=== PATIENT | male | born 1985 | race Caucasian/White ===

== ENCOUNTER 2020-03-04 05:42 | Emergency (ER) | payer OTHER, SELFPAY ==
--- NOTE | ~2020-03-04 | XR_ITS ---
EXAMINATION: XR chest 2V DATE: 03/04/2020 06:20 INDICATION: Left-sided chest pain radiating into the left shoulder TECHNIQUE: PA and lateral views of the chest were obtained. COMPARISON: None FINDINGS: The lungs are clear with no focal airspace opacities, pulmonary edema, pleural effusion or pneumothor ax. The cardiomediastinal silhouette is normal. Mild anterior wedging of a couple lower thoracic vert ebral bodies. IMPRESSION: 1. No acute cardiopulmonary disease. Reviewed, dictated and finalized at location A. [facility]
[2020-03-04 05:46] VITALS: BP 158/100; PULSE 97; RESP 20; TEMP 36.9; O2SAT 99
--- NOTE | 2020-03-04 05:52 | ECG_ITS ---
Measurements Intervals [place] Rate: 89 P: 40 IL: 136 QRS: 43 QRSD: 96 T: -2 QT: 329 QTc: 400 Interpretive Statements SINUS RHYTHM BORDERLINE ST-T WAVE ABNORMALITY- INFERIOR LEADS BASELINE ARTIFACT- II, III BORDERLINE ECG Electronically Signed On 03-04-2020 14:16:29 [employer] by Compa Larios D.O.
[2020-03-04] MEDS: SODIUM CHLORIDE 0.9% IV 1,000 ML 999 ML IV CONT (06:06)
[2020-03-04] MEDS: ASPIRIN 81 MG CHEWABLE TABLET 324 MG PO (06:07)
--- NOTE | 2020-03-04 06:11 | ED.GENADULT ---
HPI - General Adult General Chief complaint: Arrhythmia/Palpitations Stated complaint: heart issues Time Seen by Provider: 03/04/20 05:57 History of Present Illness HPI narrative: Patient is a 34-year-old gentleman who presents the emergency department with chief complaint of palpitations. Patient reports that he has been having some mild discomfort in his chest describes it as a pressure-like sensation in his mid chest but does report that he is also had pain in his left scapular area that has been going on for some time. The patient reports that he had Covid back in January and has been cleared from Covid. Patient denies fever denies chills patient denies leg pain or swelling denies shortness of breath. The patient states that his palpitations felt as though his heart was beating fast and he measured his heart rate at 109. Patient denies history of Marfan's Erler Danlos connective tissue disorder or early cardiac disease patient denies history of cocaine use or sympathomimetic use. Related Data Allergies Allergy/AdvReac Type Severity Reaction Status Date / Time No Known Allergies Allergy Unverified 03/06/18 00:06 Review of Systems Review of Systems: Narrative: A 10 system review of systems was completed on the patient and is negative except for what is stated in the HPI. Nursing and ancillary documentation was reviewed. PMFSH Comments Patient reports past medical history significant for anxiety Social history the patient denies smoking or illicit drug use Family history the patient denies history of early cardiac disease reports that his grandfather had cardiac disease in his 50s Exam Narrative: Exam Narrative: GENERAL: Well-appearing, well-nourished, and in no acute distress. HEAD: Normocephalic, atraumatic. EYES: PERRLA and EOMI. ENT: Nares clear, no rhinorrhea or epistaxis. Mucous membranes moist. NECK: Supple. CHEST: Clear to auscultation. No respiratory distress. HEART: Regular rate and rhythm. No murmur heard. Normal peripheral pulses. ABDOMEN: Soft, nontender, nondistended, normal active bowel sounds. EXTREMITIES: Normal range of motion. No edema. SKIN: Warm, dry, no rash. NEURO: No focal deficits. Alert and oriented x3. PSYCH: Normal mood and affect. Course Course Emergency Course: EKG sinus rhythm rate of [address] elevation or ST depression Vital Signs Vital signs: Vital Signs Temperature 36.9 C 03/04/20 05:46 Pulse Rate 97 03/04/20 05:46 Respiratory Rate 20 03/04/20 05:46 Blood Pressure 158/100 H 03/04/20 05:46 Pulse Oximetry 99 03/04/20 05:46 Temperature 36.9 C 03/04/20 05:46 Pulse Rate 97 03/04/20 05:46 Respiratory Rate 20 03/04/20 05:46 Blood Pressure 158/100 H 03/04/20 05:46 Pulse Oximetry 99 03/04/20 05:46 Medical Decision Making Vital Signs Vital Signs: Vital Signs Temperature 36.9 C 03/04/20 05:46 Pulse Rate 97 03/04/20 05:46 Respiratory Rate 20 03/04/20 05:46 Blood Pressure 158/100 H 03/04/20 05:46 Pulse Oximetry 99 03/04/20 05:46 Temperature 36.9 C 03/04/20 05:46 Pulse Rate 97 03/04/20 05:46 Respiratory Rate 20 03/04/20 05:46 Blood Pressure 158/100 H 03/04/20 05:46 Pulse Oximetry 99 03/04/20 05:46 Lab Data Result diagrams: 03/04/20 06:09 03/04/20 06:08 Labs: Lab Results 03/04/20 03/04/20 03/04/20 Range/Units 06:08 06:08 06:08 WBC (4.5-10.0) K/mm3 RBC (4.6-6.20) M/mm3 Hgb (14.0-18.0) g/dL Hct (42.0-52.0) % MCV (80-100) fl MCH (26-34) pg MCHC (32-36) g/dl RDW (11.5-14.5) % Plt Count (150-375) k/mm3 MPV (7.4-10.4) fl Immature Gran % (Auto) (0-0.5) % Neut % (Auto) (45.5-73.1) % Lymph % (Auto) (18.3-44.2) % [place] % (Auto) (2.6-8.5) % Eos % (Auto) (0-4.4) % Baso % (Auto) (0.2-1.2) % Lymph # (Auto) (0.9-3.2) K/mm3 [place] # (Auto) (0.1-0.6) K/mm3 Eos # (Auto) (0-0.3) K/mm
[2020-03-04 06:19] LABS: Basophils Percent Auto 0.4 % (0.2-1.2); Eosinophils Absolute Auto 0.2 K/mm3 (0-0.3); Eosinophils Percent Auto 2.2 % (0-4.4); Hematocrit 47.6 % (42.0-52.0); Hemoglobin 15.8 g/dL (14.0-18.0); Immature Granulocyte Absolute 0.04 K/mm3 (0.00-0.031); Immature Granulocyte Percent A 0.5 % (0-0.5); Lymphocytes Absolute Auto 2.87 K/mm3 (0.9-3.2); Lymphocytes Percent Auto 34.4 % (18.3-44.2); Mean Corpuscular HGB Conc 33.2 g/dl (32-36); Mean Corpuscular Hemoglobin 30.2 pg (26-34); Mean Corpuscular Volume 90.8 fl (80-100); Mean Platelet Volume 10.6 fl (7.4-10.4); Monocytes Absolute Auto 0.7 K/mm3 (0.1-0.6); Neutrophils Absolute Auto 4.6 K/mm3 (1.3-6.7); Neutrophils Percent Auto 54.5 % (45.5-73.1); Platelet Count Result 250 k/mm3 (150-375); Red Blood Count 5.24 M/mm3 (4.6-6.20); Red Cell Distribution Width 13.4 % (11.5-14.5); White Blood Count 8.4 K/mm3 (4.5-10.0)
[2020-03-04 06:28] LABS: INR 0.9; Prothrombin Time 12.4 Seconds (11.1-14.7)
[2020-03-04 06:29] LABS: Partial Thromboplastin Time 27.5 SECONDS (22.3-36.8)
[2020-03-04 06:32] LABS: D Dimer 0.27 ug/mL (<0.48)
[2020-03-04 06:33] LABS: Anion Gap 11 mmol/L (8-16); Blood Urea Nitrogen 17 mg/dL (9-20); Carbon Dioxide 29 mmol/L (22-30); Chloride 102 mmol/L (98-107); Estimated CRCL calculation 106 ml/min; Estimated Glomerular Filt Rate > 60; Glucose 98 mg/dL (75-110); Sodium 142 mmol/L (137-145)
[2020-03-04 06:38] LABS: Alanine Aminotransferase 41 U/L (4-50); Albumin Level 4.4 g/dL (3.5-5.1); Alkaline Phosphatase 55 U/L (38-126); Aspartate Amino Transferase 41 U/L (17-59); Bilirubin,Total 0.4 mg/dL (0.2-1.3); Lipase 240 U/L (23-300)
[2020-03-04 06:45] LABS: NT Pro B Type Natriuretic Pept 55 PG/ML (5-100); Troponin I < 0.012 ng/mL (0.000-0.034)
[2020-03-04 06:59] VITALS: BP 127/78; PULSE 71; RESP 18; O2SAT 99
== END 2020-03-04 07:01 | disposition home or self-care (01) ==
PROVIDERS: Emergency Provider Emergency Medicine
DX: R00.2 Palpitations (principal); R07.89 Other chest pain
CPT/HCPCS: 36415; 71046; 80048; 80076; 83690; 83880; 84484; 85025; 85380; 85610; 85730; 93005; 96360; 99284; A9270; J7030